=== PATIENT | female | born 1940 | race Caucasian/White ===

== ENCOUNTER 2018-07-10 18:36 | Emergency (ER) | payer MEDICARE, OTHER ==
[~2018-07-10] VITALS: Ht 157.5 cm; Wt 67.7 kg
[2018-07-10 18:42] VITALS: BP 170/86
[2018-07-10] MEDS ORDERED: CITA40TA22 PO (19:49)
== END 2018-07-10 19:58 | disposition home or self-care (01) ==
LOC: ER 18:37
DX: F32.9 Major depressive disorder, single episode, unspecified (principal); Z76.0 Encounter for issue of repeat prescription; Z79.899 Other long term (current) drug therapy
CPT/HCPCS: 99284

== ENCOUNTER 2019-01-15 18:44 | Inpatient (IN) | payer MEDICARE, OTHER | END 2019-01-23 14:15 | disposition home or self-care (01) | LOC: ER 18:44 → ED HOLD 01-16 02:33 → PCU 3S 01-19 17:15 → CICU 2S 01-16 07:01 | PROC: 5A1945Z Respiratory Ventilation, 24-96 Consecutive Hours (ICD-10-PCS; principal; ~2019-01-15) | DX: A41.9 Sepsis, unspecified organism (principal); J69.0 Pneumonitis due to inhalation of food and vomit; J96.00 Acute respiratory failure, unspecified whether with hypoxia or hypercapnia; J18.9 Pneumonia, unspecified organism; T78.2XXA Anaphylactic shock, unspecified, initial encounter; A31.0 Pulmonary mycobacterial infection; I27.20 Pulmonary hypertension, unspecified; R91.1 Solitary pulmonary nodule ==